=== PATIENT | female | born 1975 | race Caucasian/White ===

== ENCOUNTER → 2016-11-08 | Outpatient (CLI) | payer SELFPAY ==
--- NOTE | 2016-11-08 15:20 | US ---
EXAMINATION: Thyroid CLINICAL HISTORY: NECK MASS COMPARISON: None. FINDINGS: Right lobe of the thyroid measures 4.5 x 2.9 x 2.8 cm. The isthmus measures 4 mm in thickness. The left lobe thyroid measures 4.0 x 1.0 x 1.1 cm. Nodule 1: Size: 39 x 29 mm Location:right mid Composition:mixed cystic and solid(1) Echogenicity:hypoechoic(2) Shape:patlb-jcpe-sodv(0) Margins:smooth(0) Echogenic foci: punctuate echogenic foci(3) ACR TI-RADS total points: 6 ACR TI-RADS risk category:TR4:Moderately Suspicious IMPRESSION: Nodule 1 :ACR TI-RADS 5: Recommend: Ultrasound-guided fine needle aspiration ACR TI-RADS recommendations TR5 (>=7 points):FNA if >=1cm, follow-up if 0.5-0.9 cm every year for 5 years TR4 (4-6 points):FNA if >= 1.5cm, follow-up if 1-1.4 cm in 1, 2, 3 and 5 years TR3 (3 points):FNA if >= 2.5cm, follow-up if 1.5-2.4 cm in 1, 3 and 5 years ACR TI-RADS recommends that no more than two nodules with the highest ACR TI-RADS total point should be biopsied and no more than four nodules should be followed. Electronically signed by: Patricio Salomon MD 11/08/2016 3:19 PM CDT
== END ==
LOC: US 14:11
PROVIDERS: ATTEND Nurse Practitioner Family
DX: R22.9 Localized swelling, mass and lump, unspecified (principal)